=== PATIENT | male | born 1995 | race Caucasian/White ===

== ENCOUNTER 2020-06-23 09:42 | Emergency (ER) | payer OTHER ==
[~2020-06-23] VITALS: Ht 172.7 cm; Wt 95.0 kg
[2020-06-23] MEDS ORDERED: CLINDAMYCIN300 M1 PO (09:59)
[2020-06-23] MEDS ORDERED: HYDROCO/APAP1 TA9 PO (09:59)
[2020-06-23 10:14] VITALS: BP 160/90
== END 2020-06-23 10:20 | disposition home or self-care (01) | DRG 159 ==
LOC: ED 09:42
DX: K04.7 Periapical abscess without sinus (principal)